=== PATIENT | male | born 1970 | race Two or more races ===

== ENCOUNTER 2016-09-29 10:03 | Emergency (ER) | payer BC, MEDICAID ==
[~2016-09-29] VITALS: Ht 180.3 cm; Wt 127.5 kg
[2016-09-29 10:10] VITALS: BP 140/99
[2016-09-29 11:23] LABS: ASPARTATE AMINO TRANSFERASE 27 U/L (15-37); BLOOD UREA NITROGEN 13 mg/dL (7-18)
[2016-09-29] MEDS ORDERED: SODIUM CHLORIDE 0.9% 1,000 ML IV ONE (12:45)
[2016-09-29] MEDS ORDERED: PANTOPRAZOLE 80 MG in SODIUM CHLORIDE 0.9% 50 ML IVPB ONE (12:45)
[2016-09-29] MEDS ORDERED: SODIUM CHLORIDE 0.9% 1,000ML IVBOLUS ONE (13:00)
[2016-09-29] MEDS ORDERED: SODIUM CHLORIDE FLUSH 10ML SYR IVF ONE (13:00)
[2016-09-29] MEDS ORDERED: PANTOPRAZOLE 80 MG in SODIUM CHLORIDE 0.9% 100 ML IV SCH (13:00)
== END 2016-09-29 14:35 | disposition home or self-care (01) ==
LOC: ED 13:45
DX: K29.21 Alcoholic gastritis with bleeding (principal); F10.10 Alcohol abuse, uncomplicated
CPT/HCPCS: 36415; 74022; 80053; 83690; 85025; 85610; 85730; 86850; 86900; 93005; 96365; 99285; C9113; J7030